=== PATIENT | female | born 1950 | race Caucasian/White ===

== ENCOUNTER 2017-03-07 15:42 | Emergency (ER) | payer MEDICARE ==
[2017-03-07 16:28] VITALS: BP 127/77
--- NOTE | 2017-03-07 16:55 | UC ---
FLU HPI - HPI Summary HPI Summary: 66 female presents to with complaints of coughing, nasal congestion, sinus congestion, ear fullness and feeling fatigued. Denies known fever/chills, vomiting, sore throat, trouble breathing and chest pain. No SOB. Admits to productive cough that is yellow/green at times, and at other times it is a dry tickling cough. States she has been suffering from these symptoms for the past 10-14 days getting better at times, but now have seemed to worsen. Patient does smoke cigarettes. Denies any PMHx. Has been taking aspirin randomly when having body aches and cough drops. No other medications. No other complaints. - History of Current Complaint Hx Obtained From: Patient Onset/Duration: Sudden Onset, Lasting Weeks, Still Present, Worse Since Severity Currently: Mild Severity Initially: Moderate Pain Intensity: 0 Pain Scale Used: 0-10 Numeric Associated Signs & Symptoms: Positive: Myalgia, Cough, Nasal Congestion, Headache <Tabby Day - Last Filed: 03/07/17 16:56> <Brenna Plata - Last Filed: 03/07/17 17:27> - History of Current Complaint Chief Complaint: UCRespiratory Stated Complaint: COUGH, COLD SYMPTOMS Time Seen by Provider: 03/07/17 16:23 - Allergy/Home Medications Allergies/Adverse Reactions: Allergies Allergy/AdvReac Type Severity Reaction Status Date / Time Sulfites Allergy Altered Verified 03/07/17 16:19 Mental Status PMH/Surg Hx/FS Hx/Imm Hx - Additional Past Medical History Additional PMH: Denies COPD, Asthma, HTN and DM - Surgical History Surgical History: Yes Surgery Procedure, Year, and Place: right inguinal hernia. neck cyst removed-- 2010 - Family History Known Family History: Positive: None - Social History Alcohol Use: Rare Substance Use Type: None Smoking Status (MU): Heavy Every Day Tobacco Smoker Type: Cigarettes Amount Used/How Often: 1/2 pack daily Household Exposure Type: Cigarettes - Immunization History Most Recent Influenza Vaccination: not this season Most Recent Tetanus Shot: unknown <Tabby Day - Last Filed: 03/07/17 16:56> Review of Systems Constitutional: Negative ENT: Sore Throat, Nasal Discharge, Sinus Congestion, Sinus Pain/Tenderness Respiratory: Cough Cardiovascular: Negative Gastrointestinal: Negative Musculoskeletal: Myalgia Neurological: Headache All Other Systems Reviewed And Are Negative: Yes <ShayTabby - Last Filed: 03/07/17 16:56> Physical Exam Triage Information Reviewed: Yes Appearance: Well-Appearing, No Pain Distress, Well-Nourished Vital Signs: Initial Vital Signs Temp 100.1 F 03/07/17 16:20 Pulse 96 03/07/17 16:20 Resp 20 03/07/17 16:20 BP 127/77 03/07/17 16:20 Pulse Ox 96 03/07/17 16:20 low grade fever noted, 96% O2 noted Vital Signs Reviewed: Yes Eyes: Positive: Conjunctiva Clear ENT: Positive: Hearing grossly normal, Pharynx normal - post nasal drip noted, Nasal congestion, TMs normal, Uvula midline. Negative: TM bulging, TM dull, TM red, Tonsillar swelling, Tonsillar exudate Dental: Negative: Percussion Tenderness @ Neck: Positive: Supple, Nontender, No Lymphadenopathy Respiratory: Positive: Chest non-tender, No respiratory distress, No accessory muscle use, Rhonchi - diffuse, Wheezing - diffuse Cardiovascular: Positive: RRR, No Murmur, Pulses Normal, Brisk Capillary Refill - <2 sec Abdomen Description: Positive: Soft Bowel Sounds: Positive: Present Musculoskeletal: Positive: Strength Intact, ROM Intact Neurological: Positive: Alert Skin Exam: Normal <Tabby Day - Last Filed: 03/07/17 16:56> Vital Signs: Initial Vital Signs Temp 100.1 F 03/07/17 16:20 Pulse 96 03/07/17 16:20 Resp 20 03/07/17 16:20 BP 127/77 03/07/17 16:20 Pulse Ox 96 03/07/17 16:20 <Brenna Plata - Last Filed: 03/07/17 17:27> Flu Course/Dx - Course Course Of Treatment: recommended chest xray and duo neb however patient refused. unable to determine acute lung sounds from a possible acute pneumonia versus chronic "smoker's long" without chest xray. therefore will treat for worsening and prolonged URI with a zpack. also has some common penumonia bacteria coverage. tessalon pearls, flonase and inhaler. normal vitals. no signs of respiratory distress. patient aware of worsening signs and symptoms and to return immediately if occur. ibuprofen/tylenol for pain and fever. follow up appointment on tuesday with pcp for recheck. increase fluid intake, saline rinses, plenty of rest. - Differential Dx/Diagnosis Differential Diagnosis/HQI/PQRI: Bronchitis, Influenza, Pneumonia, Upper Respiratory Infection Provider Diagnoses: upper respiratory infection <Tabby Day - Last Filed: 03/07/17 16:56> Discharge <Tabby Day - Last Filed: 03/07/17 16:56> <Brenna Plata - Last Filed: 03/07/17 17:27> - Discharge Plan Condition: Stable Disposition: HOME Prescriptions: Albuterol HFA INHALER* [Ventolin HFA Inhaler*] 1 - 2 puff INH Q6H PRN #1 mdi PRN Reason: Sob/Wheezing Azithromycin TAB* [Zithromax TAB (Z-LYNN) 250 mg #6 tabs] 2 tab PO .TODAY, THEN 1 DAILY #1 lynn Benzonatate CAP* [Tessalon 100 MG CAP*] 100 mg PO TID #20 cap Fluticasone NASAL SPRAY 50MCG* [Flonase NASAL SPRAY 50MCG*] 2 spray BOTH NARES DAILY #1 btl Patient Education Materials: Upper Respiratory Infection (ED) Referrals: Juju Whalen MD [Primary Care Provider] - Additional Instructions: Take prescribed medication as directed. Tessalon pearls are for cough, especially at bedtime. Extra pillow at bedtime. Hot showers. Recommend saline rinses. Increase fluid intake and get plenty of rest. May want to try an antihistamine such as claritin or zyrtec to help dry up extra mucus. Wash hands frequently, cover mouth when coughing. Any new or worsening symptoms please seek medical attention immediately, as discussed. Follow up with PCP on Tuesday to check improvement. Attestation Statement User Type: Provider - I was available for consult. This patient was seen by the TYLER. The patient was not presented to, seen by, or examined by me. -Hayde <Brenna Plata - Last Filed: 03/07/17 17:27>
== END 2017-03-07 17:03 | disposition home or self-care (01) ==
LOC: UCCORT 15:42
DX: J06.9 Acute upper respiratory infection, unspecified (principal); F17.210 Nicotine dependence, cigarettes, uncomplicated
CPT/HCPCS: 99212; G0463

== ENCOUNTER 2017-12-25 08:55 | Emergency (ER) | payer MEDICARE ==
[2017-12-25 09:13] VITALS: BP 129/82
--- NOTE | 2017-12-25 09:27 | UC ---
Neck Pain HPI - HPI Summary HPI Summary: Pt c/o sudden onset of left side neck pain and stiffness. Pt reports that she was doing "a lot of gardening" yesterday and woke with left side neck pain and stiffness. Pt is currently being treated weekly by Physical therapy for neck and upper back. - History of Current Complaint Chief Complaint: UCUpperExtremity Stated Complaint: NECK PAIN Time Seen by Provider: 12/25/17 09:02 Hx Obtained From: Patient ?: No Mechanism Of Injury: No Known Trauma Onset/Duration: Lasting Hours Severity: Moderate Pain Intensity: 7 Location: Radiates To: - left shoulder Character: Dull, Aching, Stiff, Burning Aggravating Factors: Position, Movement Alleviating Factors: Position Associated Signs & Symptoms: Positive: Negative Related History: Previous Neck Injury - Risk Factors Meningitis Risk Factors: Negative - Allergies/Home Medications Allergies/Adverse Reactions: Allergies Allergy/AdvReac Type Severity Reaction Status Date / Time sulfite Allergy Difficulty Verified 12/25/17 09:05 Breathing Home Medications: Home Medications Aspirin EC TAB* [Ecotrin EC TAB*] 325 mg PO ONCE 12/25/17 [History Confirmed ] PMH/Surg Hx/FS Hx/Imm Hx Previously Healthy: Yes - Surgical History Surgical History: Yes Surgery Procedure, Year, and Place: Right Neck Sebaceous Cyst, 2018, Dr. Roque; Right Inguinal Herniorrhaphy, 2009, [place]; Neck Cyst, 2009, [place] - Family History Known Family History: Positive: Cardiac Disease - Social History Occupation: Retired Lives: Alone Alcohol Use: None Substance Use Type: None Smoking Status (MU): Heavy Every Day Tobacco Smoker Type: Cigarettes Amount Used/How Often: <1 PPD Length of Time of Smoking/Using Tobacco: Since Age 16 Have You Smoked in the Last Year: Yes Household Exposure Type: Cigarettes - Immunization History Most Recent Influenza Vaccination: not this season Most Recent Tetanus Shot: 12/12/14 Review Of Systems Constitutional: Positive: Negative Skin: Positive: Negative Eyes: Positive: Negative ENT: Positive: Negative Respiratory: Positive: Negative Cardiovascular: Positive: Negative Gastrointestinal: Positive: Negative Genitourinary: Positive: Negative Musculoskeletal: Positive: Decreased ROM - neck, Myalgia Neurological: Positive: Negative Psychological: Positive: Negative All Other Systems Reviewed And Are Negative: Yes Physical Exam Triage Information Reviewed: Yes Appearance: Pain Distress Vital Signs: Initial Vital Signs Temp 97.5 F 12/25/17 09:07 Pulse 94 12/25/17 09:07 Resp 16 12/25/17 09:07 BP 129/82 12/25/17 09:07 Pulse Ox 100 12/25/17 09:07 Vital Signs Reviewed: Yes Eye Exam: Normal ENT Exam: Normal Dental Exam: Normal Neck exam: Other Neck: Positive: Other: - c/o pain with ROM Respiratory Exam: Normal Cardiovascular Exam: Normal Musculoskeletal Exam: Normal Musculoskeletal: Positive: ROM Limited @ - neck secondary to discomfort Neurological Exam: Normal Psychological Exam: Normal Skin Exam: Normal Diagnostics - Radiology No standard instances Radiology Interpretation Completed By: Radiologist - IMPRESSION: DEGENERATIVE DISC DISEASE AND OSTEOARTHRITIS MOST PRONOUNCED AT C5-C6 AND C6-C7 Neck Pain Course/Dx - Differential Dx/Diagnosis Differential Dx/HQI/PQRI: Sprain, Strain, Torticollis Provider Diagnoses: cervical strain. neck pain Discharge - Sign-Out/Discharge Documenting (check all that apply): Patient Departure All imaging exams completed and their final reports reviewed: Yes - Discharge Plan Condition: Stable Disposition: HOME Patient Education Materials: Cervical Strain (ED), Acute Neck Pain (ED) Referrals: Juju Whalen MD [Primary Care Provider] - If Needed Additional Instructions: Please follow up as soon as possible with your physical therapist. - Billing Disposition and Condition Condition: STABLE Disposition: Home
--- NOTE | 2017-12-25 09:52 | RAD ---
HISTORY: sudden onset neck pain, no injury COMPARISONS: None VIEWS: 6 , Frontal, lateral, open-mouth odontoid, and bilateral oblique views of the cervical spine. FINDINGS: The cervical spine is visualized from the skull base through T1 . ALIGNMENT: There is straightening of the cervical lordosis. There is grade 1 anterolisthesis of C3 on C4 and C4 and C5. VERTEBRAL BODIES: There is diffuse osteopenia. There is mild anterolateral marginal osteophyte formation, with mild sclerotic reactive endplate change at C5-C6. JOINTS: There is diffuse uncovertebral and facet hypertrophy. On the oblique views, there is moderate right-sided neural foraminal narrowing at C6-C7. There is fusion of the facet joints at C2-C3. INTERVERTEBRAL DISCS: There is diffuse loss of intervertebral disc height. SOFT TISSUE: The prevertebral soft tissues are normal. Carotid calcification is noted. OTHER: The skull base is normal. The lung apices are clear. IMPRESSION: DEGENERATIVE DISC DISEASE AND OSTEOARTHRITIS MOST PRONOUNCED AT C5-C6 AND C6-C7
== END 2017-12-25 10:07 | disposition home or self-care (01) ==
LOC: UCCORT 08:55
DX: S16.1XXA Strain of muscle, fascia and tendon at neck level, initial encounter (principal); X50.0XXA Overexertion from strenuous movement or load, initial encounter; Y93.H2 Activity, gardening and landscaping; Y92.007 Garden or yard of unspecified non-institutional (private) residence as the place of occurrence of the external cause; Z88.8 Allergy status to other drugs, medicaments and biological substances; F17.210 Nicotine dependence, cigarettes, uncomplicated
CPT/HCPCS: 72050; 99211; G0463